=== PATIENT | male | born 1950 | race Caucasian/White ===

== ENCOUNTER 2019-02-11 07:50 | Inpatient (IN) | payer BC, MEDICARE, OTHER ==
[~2019-02-11 07:50] MED LIST: Acetaminophen 325 MG Tab PO SCH; Bisacodyl 5 MG Tab PO PRN; Cyclobenzaprine 10 MG Tab PO PRN; Famotidine 20 MG Tab PO SCH; Lidocaine 1%/Sod Bicarbonate in NS 8.4% 1 ML Syringe IDERM PRN; Magnesium Hydroxide 400 MG/5 ML Susp 30 ML Cup PO PRN; Morphine 2 MG/ML Syringe IVPUSH PRN; Naloxone 0.4 MG/ML SDV IVPUSH PRN; Pregabalin 25 MG Cap PO SCH; Prochlorperazine 10 MG/2 ML SDV IVPUSH PRN; Sennosides 8.6 MG Tab PO PRN; Sodium Chloride 0.9% 10 ML Syringe FLUSH PRN; oxyCODONE ER 10 MG TAB.ER PO SCH
[2019-02-11] MEDS ORDERED: Midazolam 1 MG/ML 2 ML SDV ONE (07:54)
[2019-02-11] MEDS ORDERED: ceFAZolin 1 GM Vial ONE ×2 (07:55→08:03)
[2019-02-11] MEDS ORDERED: fentaNYL 100 MCG/2 ML SDV ONE (07:55)
[2019-02-11] MEDS ORDERED: Propofol 200 MG/20 ML SDV ONE ×2 (07:59→10:11)
[2019-02-11] MEDS ORDERED: Bupivacaine 0.25% 10 ML SDV ONE (08:03)
[2019-02-11] MEDS ORDERED: Iodine/Sodium Iodide 2% Tincture 30 ML Bottle ONE (08:03)
[2019-02-11] MEDS ORDERED: Vancomycin 1 GM SDV ONE (08:03)
[2019-02-11] MEDS ORDERED: Ropivacaine 0.5% 5 MG/ML 30 ML SDV ONE (08:05)
[2019-02-11] MEDS: Lactated Ringers 1,000 ML IV SCH ×2 (08:30→11:23)
[2019-02-11] MEDS ORDERED: Scopolamine 1.5 MG Transdermal Patch TRDERM PRN (08:39)
--- NOTE | 2019-02-11 08:43 | PCM.PREANE ---
Preanesthetic Assessment - Procedure Proposed Procedure: Right TKA - Anesthesia/Transfusion/Family Hx Anesthesia History: Prior Anesthesia Reaction (nausea) Family History of Anesthesia Reaction: No Transfusion History: No Prior Transfusion(s) - Review of Systems General: No Symptoms Pulmonary: No Symptoms Cardiovascular: Dyspnea on Exertion Gastrointestinal: No Symptoms Neurological: Numbness ("at times right fingers") Other: Reports: Thyroid Problems (hypothyroid) - Physical Assessment NPO Status Date: 02/10/19 NPO Status Time: 22:30 Vital Signs: Last Vital Signs Temp 36.7 C 02/11/19 08:00 Pulse 90 02/11/19 08:00 Resp 16 02/11/19 08:00 BP 126/82 02/11/19 08:00 Pulse Ox 95 02/11/19 08:00 Height: 1.8 m Weight: 103.873 kg ASA Class: 2 Mental Status: Alert & Oriented x3 Dentition: Reports: Normal Dentition, [place](s) Thyro-Mental Finger Breadths: 3 Mouth Opening Finger Breadths: 3 ROM/Head Extension: Full Lungs: Clear to Auscultation, Normal Respiratory Effort Cardiovascular: Regular Rate, Regular Rhythm - Lab Values: Laboratory Last Values MRSA (PCR) Negative 02/01/19 10:41 - Imaging/EKG Impressions: EKG on chart SR rate92 see chart - Allergies Allergies/Adverse Reactions: Allergies Allergy/AdvReac Type Severity Reaction Status Date / Time No Known Allergies Allergy Verified 02/08/19 13:36 - Anesthesia Plan Pre-Op Medication Ordered: None - Acknowledgements Anesthesia Type Planned: Spinal Pt an Appropriate Candidate for the Planned Anesthesia: Yes Alternatives and Risks of Anesthesia Discussed w Pt/Guardian: Yes Pt/Guardian Understands and Agrees with Anesthesia Plan: Yes PreAnesthesia Questionnaire HEENT History: Reports: Cataract, Impaired Vision, Other (See Below) Other HEENT History: WEARS GLASSES Cardiovascular History: Reports: High Cholesterol, Hypertension Respiratory History: Reports: None Gastrointestinal History: Reports: GERD Genitourinary History: Reports: None [employer]ING History: Reports: None Musculoskeletal History: Reports: Osteoarthritis Other Musculoskeletal History: left wrist fracture with closed reduction, right arm fracture with plates, right clavicle fracture Neurological History: Reports: None, Other (See Below) ("age 8 or 9 had epilepsy had medication for a couple years then that was it") Psychiatric History: Reports: None Endocrine/Metabolic History: Reports: Hypothyroidism, Vitamin D Deficiency Hematologic History: Reports: None Immunologic History: Reports: None Oncologic (Cancer) History: Reports: None Dermatologic History: Reports: None - Past Surgical History Head Surgeries/Procedures: Reports: None HEENT Surgical History: Reports: Cataract Surgery Cardiovascular Surgical History: Reports: None Respiratory Surgical History: Reports: None GI Surgical History: Reports: Appendectomy Female Surgical History: Reports: None Male Surgical History: Reports: None Endocrine Surgical History: Reports: None Neurological Surgical History: Reports: None Musculoskeletal Surgical History: Reports: None Oncologic Surgical History: Reports: None Dermatological Surgical History: Reports: None - SUBSTANCE USE Smoking Status *Q: Former Smoker Tobacco Use Within Last Twelve Months: No Second Hand Smoke Exposure: No Days Per Week of Alcohol Use: 0 Number of Drinks Per Day: 0 Total Drinks Per Week: 0 Recreational Drug Use History: No - HOME MEDS Home Medications: Home Meds Cholecalciferol (Vitamin D3) [Vitamin D3] 5,000 unit PO DAILY 02/08/19 [History] Esomeprazole Magnesium [Nexium] 40 mg PO DAILY 02/08/19 [History] Levothyroxine Sodium [Synthroid] 112 mcg PO DAILY 02/08/19 [History] Lisinopril 20 mg PO DAILY 02/08/19 [History] amLODIPine Besylate [Norvasc] 2.5 mg PO DAILY 02/08/19 [History] atorvaSTATin Calcium [Atorvastatin Calcium] 80 mg PO DAILY 02/08/19 [History] - CURRENT (IN HOUSE) MEDS Current Meds: Current Medications Acetaminophen (Tylenol) 975 mg PO NOW [facility] Stop: 02/11/19 12:00 Last Admin: 02/11/19 08:18 Dose: 975 mg Bisacodyl (Dulcolax) 5 mg PO DAILY PRN PRN Reason: Constipation Morphine Sulfate 8 mg/Epinephrine HCl 0.3 mg/Cefuroxime Sodium 750 mg/Ketorolac Tromethamine 30 mg/Sodium Chloride 27.9 ml 0 mg .XX ONETIME ONE Stop: 02/11/19 09:46 Cyclobenzaprine HCl (Flexeril) 10 mg PO TID PRN PRN Reason: Spasms Docusate Sodium (Colace) 100 mg PO BID [facility] Famotidine (Pepcid) 20 mg PO Q12H [facility] Lactated Ringer's (Ringers, Lactated) 1,000 mls @ 125 mls/hr IV ASDIRECTED [facility] Stop: 02/11/19 23:00 Cefazolin Sodium/Dextrose 2 gm (/ Premix) 50 mls @ 100 mls/hr IV Q8H [facility] Stop: 02/11/19 22:44 Ketorolac Tromethamine (Toradol) 15 mg IVPUSH Q6H PRN PRN Reason: Pain Lidocaine/Sodium Bicarbonate (Buffered Lidocaine 1% In Ns 8.4%) 0.25 ml IDERM ONETIME PRN PRN Reason: Prior to IV Start Stop: 02/11/19 18:00 Magnesium Hydroxide (Milk Of Magnesia) 30 ml PO BID PRN PRN Reason: Constipation Morphine Sulfate (Morphine) 2 mg IVPUSH Q2H PRN PRN Reason: Breakthrough Pain Naloxone HCl (Narcan) 0.1 mg IVPUSH Q5M PRN PRN Reason: Oversedation Oxycodone HCl (Oxycontin) 10 mg PO ONETIME [facility] Stop: 02/11/19 12:00 Last Admin: 02/11/19 08:18 Dose: 10 mg Pregabalin (Lyrica) 50 mg PO ONETIME [facility] Stop: 02/11/19 12:00 Last Admin: 02/11/19 08:18 Dose: 50 mg Prochlorperazine Edisylate (Compazine) 5 mg IVPUSH Q8H PRN PRN Reason: Nausea/Vomiting Rivaroxaban (Xarelto) 10 mg PO DAILY [facility] Senna (Senna) 8.6 mg PO BID PRN PRN Reason: Constipation Sodium Chloride (Saline Flush) 10 ml FLUSH ASDIRECTED PRN PRN Reason: Keep Vein Open Stop: 02/11/19 18:00 Discontinued Medications Bupivacaine HCl (Sensorcaine-Mpf 0.25%) Confirm Administered Dose 30 ml .ROUTE .STK-MED ONE Stop: 02/11/19 08:04 Cefazolin Sodium (Ancef) Confirm Administered Dose 2 gm .ROUTE .STK-MED ONE Stop: 02/11/19 07:56 Cefazolin Sodium (Ancef) Confirm Administered Dose 2 gm .ROUTE .STK-MED ONE Stop: 02/11/19 08:04 Fentanyl (Sublimaze) Confirm Administered Dose 100 mcg .ROUTE .STK-MED ONE Stop: 02/11/19 07:56 Iodine (Iodine 2% Mild Tincture) Confirm Administered Dose 30 ml .ROUTE .STK- MED ONE Stop: 02/11/19 08:04 Midazolam HCl (Versed 1 Mg/Ml) Confirm Administered Dose 2 mg .ROUTE .STK-MED ONE Stop: 02/11/19 07:55 Propofol (Diprivan 20 Ml) Confirm Administered Dose 600 mg .ROUTE .STK-MED ONE Stop: 02/11/19 08:00 Ropivacaine (Naropin 0.5%) Confirm Administered Dose 30 ml .ROUTE .STK-MED ONE Stop: 02/11/19 08:06 Tranexamic Acid (Cyklokapron) Confirm Administered Dose 1,000 mg .ROUTE .STK- MED ONE Stop: 02/11/19 08:04 Vancomycin HCl (Vancomycin) Confirm Administered Dose 1 gm .ROUTE .STK-MED ONE Stop: 02/11/19 08:04
[2019-02-11] MEDS ORDERED: ePHEDrine/Normal Saline 25 MG/5 ML Syringe ONE (09:28)
[2019-02-11] MEDS ORDERED: Lactated Ringers 1,000 ML ONE ×2 (09:35→12:10)
[2019-02-11] MEDS ORDERED: fentaNYL 100 MCG/2 ML SDV IVPUSH PRN (09:38)
[2019-02-11] MEDS ORDERED: HYDROmorphone 0.5 MG/0.5 ML Syringe IVPUSH PRN (09:38)
[2019-02-11] MEDS ORDERED: Ondansetron 4 MG/2 ML SDV IVPUSH PRN ×2 (09:38→17:23)
[2019-02-11] MEDS ORDERED: Phenylephrine/Normal Saline 100 MCG/ML 10 ML Syringe ONE (09:55)
[2019-02-11] MEDS ORDERED: Ondansetron 4 MG/2 ML SDV ONE (10:30)
[2019-02-11] MEDS ORDERED: Ketorolac 30 MG/ML SDV ONE (10:30)
[2019-02-11] MEDS: Morphine 8 MG, EPINEPHrine 0.3 MG, Cefuroxime 750 MG, Ketorolac 30 MG, Sodium Chloride ... ONE ×10 (10:32→15:06)
--- NOTE | 2019-02-11 11:11 | PCM.POSTAN ---
POST ANESTHESIA ASSESSMENT - MENTAL STATUS Mental Status: Alert, Oriented - VITAL SIGNS Vital Signs: Last Vital Signs Temp 209.1 F H 02/11/19 11:03 Pulse 90 02/11/19 08:00 Resp 20 02/11/19 11:03 BP 82/57 L 02/11/19 11:03 Pulse Ox 95 02/11/19 11:03 86 20 98.4 95% 84/57 - RESPIRATORY Respiratory Status: Respiratory Rate WNL, Airway Patent, O2 Saturation Stable, Supplemental Oxygen - CARDIOVASCULAR CV Status: Pulse Rate WNL, Blood Pressure Stable - GASTROINTESTINAL GI Status: No Symptoms - PAIN Pain Score: 0 - POST OP HYDRATION Hydration Status: Adequate & Stable
--- NOTE | 2019-02-11 11:27 | PCM.SN ---
- Free Text/Narrative Note: Right selective femoral nerve block at the adductor canal for post-procedure pain control under US guidance requested by Dr. Norris. Date:02/11/19 Time Out:1115 Start:1117 End: 1119 Chart reviewed. Consent signed. Questions answered. Appropriate monitors applied. Time out performed. Right mid-shaft femur identified with ultrasound, scanning medially of femur, the femoral artery in the adductor canal visualized , and the femoral nerve located laterally to the artery. The skin was prepped lateral to the ultrasound probe with chlorahexadine times two. The 21ga 4 insulated block needle was inserted under direct ultrasound guidance into the adductor canal. 25mL of 0.5% ropivacaine with 1:200,000 epinephrine was injected circumferentially around the nerve with intermittent negative aspiration noted. Patient tolerated the procedure well. Sterile technique noted along with sterile gloves, mask, and sterile probe cover. See picture on progress note and vital signs on nurses notes. Block completed in PACU. Jose Martin Mendez CRNA
--- NOTE | 2019-02-11 12:26 | CR ---
Right knee: AP and crosstable lateral views the right knee were obtained. Comparison: No previous knee exam. Knee prosthesis is seen. Components are aligned. Underlying bony structures are intact. Soft tissue air is noted from the surgical procedure. Impression: 1. Satisfactory postoperative radiographic appearance. Recently placed right knee prosthesis. Diagnostic code #2 This report was dictated in [place] Standard Time
--- NOTE | 2019-02-11 13:00 | PCM.CONS ---
H&P History of Present Illness - General Date of Service: 02/11/19 Admit Problem/Dx: Admission Diagnosis/Problem Admission Diagnosis/Problem Osteoarthritis of knee Source of Information: Patient, Old Records, Provider, RN, RN Notes Reviewed History Limitations: Reports: No Limitations - History of Present Illness Initial Comments - Free Text/Narative: Mamadou Salazar is a 68 yo male patient of Dr. Norris who is post-operative day 0 of right TKA. Hospital medicine was consulted for post-operative medical care of the following listed medical conditions. At this time he is resting comfortably in bed. Pain is controlled. He denies any chest pain, shortness of breath, palpitations, nausea, or vomiting. He carries a history of: HTN, Hypothyroidism , HLD, GERD, Vitamin D deficiency, 4cm TAA. He is a former smoker. He is a full code. His primary care provider is Joy Morris PA-C. - Related Data Allergies/Adverse Reactions: Allergies Allergy/AdvReac Type Severity Reaction Status Date / Time No Known Allergies Allergy Verified 02/08/19 13:36 Home Medications: Home Meds Cholecalciferol (Vitamin D3) [Vitamin D3] 5,000 unit PO DAILY 02/08/19 [History] Esomeprazole Magnesium [Nexium] 40 mg PO DAILY 02/08/19 [History] Levothyroxine Sodium [Synthroid] 112 mcg PO DAILY 02/08/19 [History] Lisinopril 20 mg PO DAILY 02/08/19 [History] amLODIPine Besylate [Norvasc] 2.5 mg PO DAILY 02/08/19 [History] atorvaSTATin Calcium [Atorvastatin Calcium] 80 mg PO DAILY 02/08/19 [History] Past Medical History HEENT History: Reports: Cataract, Impaired Vision, Other (See Below) Other HEENT History: WEARS GLASSES Cardiovascular History: Reports: High Cholesterol, Hypertension Respiratory History: Reports: None Gastrointestinal History: Reports: GERD Genitourinary History: Reports: None [employer] History: Reports: None Musculoskeletal History: Reports: Osteoarthritis Other Musculoskeletal History: left wrist fracture with closed reduction, right arm fracture with plates, right clavicle fracture Neurological History: Reports: None, Other (See Below) ("age 8 or 9 had epilepsy had medication for a couple years then that was it") Psychiatric History: Reports: None Endocrine/Metabolic History: Reports: Hypothyroidism, Vitamin D Deficiency Hematologic History: Reports: None Immunologic History: Reports: None Oncologic (Cancer) History: Reports: None Dermatologic History: Reports: None - Past Surgical History Head Surgeries/Procedures: Reports: None HEENT Surgical History: Reports: Cataract Surgery Cardiovascular Surgical History: Reports: None Respiratory Surgical History: Reports: None GI Surgical History: Reports: Appendectomy Female Surgical History: Reports: None Male Surgical History: Reports: None Endocrine Surgical History: Reports: None Neurological Surgical History: Reports: None Musculoskeletal Surgical History: Reports: None Oncologic Surgical History: Reports: None Dermatological Surgical History: Reports: None Social & Family History - Tobacco Use Smoking Status *Q: Former Smoker Used Tobacco, but Quit: Yes Month/Year Tobacco Last Used: 1999 Second Hand Smoke Exposure: No - Caffeine Use Caffeine Use: Reports: Coffee - Alcohol Use Days Per Week of Alcohol Use: 0 Number of Drinks Per Day: 0 Total Drinks Per Week: 0 - Recreational Drug Use Recreational Drug Use: No Drug Use in Last 12 Months: No H&P Review of Systems - Review of Systems: Review Of Systems: See Below General: Reports: No Symptoms. Denies: Fever, Chills HEENT: Reports: No Symptoms. Denies: Headaches, Sore Throat Pulmonary: Reports: No Symptoms. Denies: Shortness of Breath, Wheezing, Pleuritic Chest Pain, Cough, Sputum Cardiovascular: Reports: No Symptoms. Denies: Chest Pain, Palpitations, Dyspnea on Exertion Gastrointestinal: Reports: No Symptoms. Denies: Abdominal Pain, Constipation, Diarrhea, Nausea, Vomiting Genitourinary: Reports: No Symptoms. Denies: Pain Musculoskeletal: Reports: Leg Pain (right ) Skin: Reports: No Symptoms. Denies: Cyanosis Psychiatric: Reports: No Symptoms. Denies: Confusion Neurological: Reports: Difficulty Walking, Gait Disturbance. Denies: Pre- Existing Deficit Hematologic/Lymphatic: Reports: No Symptoms Immunologic: Reports: No Symptoms Exam - Exam Exam: See Below - Vital Signs Vital Signs: Last Vital Signs Temp 97.9 F 02/11/19 12:46 Pulse 64 02/11/19 12:46 Resp 16 02/11/19 12:46 BP 110/72 02/11/19 12:46 Pulse Ox 99 02/11/19 12:46 Weight: 229 lb - Exam Quality Assessment: Supplemental Oxygen, DVT Prophylaxis General: Alert, Oriented, Cooperative. No: Mild Distress HEENT: Conjunctiva Clear, EACs Clear, EOMI, Hearing Intact, Mucosa Moist & [place] , Nares Patent, Posterior Pharynx Clear, PERRLA Neck: Supple, Trachea Midline Lungs: Clear to Auscultation, Normal Respiratory Effort Cardiovascular: Regular Rate, Regular Rhythm GI/Abdominal Exam: Normal Bowel Sounds, Soft, Non-Tender, No Distention, No Abnormal Bruit (Male) Exam: Deferred Rectal (Males) Exam: Deferred Back Exam: Normal Inspection, Full Range of Motion Extremities: No Pedal Edema, Normal Capillary Refill, Leg Pain, Limited Range of Motion, Other (Bandage in place on right leg. Bandage is dry and intact. Cooling pack in place.) Peripheral Pulses: 2+: Radial (L), Radial (R), Dorsalis Pedis (L), Dorsalis Pedis (R) Skin: Warm, Dry, Intact Neurological: Cranial Nerves Intact (Grossly ) Neuro Extensive - Mental Status: Alert, Oriented x3, Normal Mood/Affect Sepsis Event Note - Evaluation Sepsis Screening Result: No Definite Risk - Focused Exam Vital Signs: Vital Signs Temp Pulse Resp BP Pulse Ox Pulse Ox 02/11/19 12:46 97.9 F 64 16 110/72 99 02/11/19 12:44 99 02/11/19 11:50 16 106/62 92 L 02/11/19 11:45 98.1 F 20 97/59 L 92 L 02/11/19 11:30 20 89/67 L 92 L 02/11/19 11:20 13 93/63 100 02/11/19 11:10 18 95/53 L 94 L 02/11/19 11:03 209.1 F H 20 82/57 L 95 95 02/11/19 08:00 98.0 F 90 16 126/82 95 Date Exam was Performed: 02/11/19 Time Exam was Performed: 14:29 Consult PN Assessment/Plan POD#: 0 (1) S/P total knee arthroplasty SNOMED Code(s): 7503183499560, 258144283, 1388412007593 Code(s): Z96.659 - PRESENCE OF UNSPECIFIED ARTIFICIAL KNEE JOINT Priority: High Current Visit: Yes Qualifiers: Laterality: right Qualified Code(s): Z96.651 - Presence of right artificial knee joint (2) Osteoarthritis SNOMED Code(s): 171149624 Code(s): M19.90 - UNSPECIFIED OSTEOARTHRITIS, UNSPECIFIED SITE Priority: High Current Visit: Yes Qualifiers: Osteoarthritis location: knee Osteoarthritis type: primary Laterality: right Qualified Code(s): M17.11 - Unilateral primary osteoarthritis, right knee (3) HTN (hypertension) SNOMED Code(s): 48367930 Code(s): I10 - ESSENTIAL (PRIMARY) HYPERTENSION Priority: Low Current Visit: No Qualifiers: Hypertension type: unspecified Qualified Code(s): I10 - Essential (primary ) hypertension (4) Hypothyroid SNOMED Code(s): 34500314 Code(s): E03.9 - HYPOTHYROIDISM, UNSPECIFIED Priority: Low Current Visit : No Qualifiers: Hypothyroidism type: unspecified Qualified Code(s): E03.9 - Hypothyroidism , unspecified (5) HLD (hyperlipidemia) SNOMED Code(s): 71583358 Code(s): E78.5 - HYPERLIPIDEMIA, UNSPECIFIED Priority: Low Current Visit : No Qualifiers: Hyperlipidemia type: unspecified Qualified Code(s): E78.5 - Hyperlipidemia , unspecified (6) GERD (gastroesophageal reflux disease) SNOMED Code(s): 487120709 Code(s): K21.9 - GASTRO-ESOPHAGEAL REFLUX DISEASE WITHOUT ESOPHAGITIS Priority: Low Current Visit: No Qualifiers: Esophagitis presence: esophagitis presence not specified Qualified Code(s) : K21.9 - Gastro-esophageal reflux disease without esophagitis (7) Vitamin D deficiency SNOMED Code(s): 45126537 Code(s): E55.9 - VITAMIN D DEFICIENCY, UNSPECIFIED Priority: Low Current Visit: No (8) Thoracic aortic aneurysm (TAA) SNOMED Code(s): 298306761 Code(s): I71.2 - THORACIC AORTIC ANEURYSM, WITHOUT RUPTURE Priority: Medium Current Visit: No Qualifiers: Presence of rupture: without rupture Qualified Code(s): I71.2 - Thoracic aortic aneurysm, without rupture Problem List Initiated/Reviewed/Updated: Yes Plan: I/P: Acute: S/P right total knee arthroplasty - post-operative day 0 -DVT prophylaxis and pain management per primary care team -PT/OT -IS/RT -Monitor oxygen saturation -Titrate oxygen as needed -Home medications reviewed -Vital signs stable -Monitor labs -Pre-operative Hgb was 14.7 -Pre-operative GFR was 79 -Pre-operative 12-lead EKG showed Sinus arrhythmia with LAFB, Non-specific ST segment abnormalities and Long QT Osteoarthritis of right knee -Pain management per primary care team Chronic: HTN Hypothyroidism HLD GERD Vitamin D deficiency 4cm TAA Plan: Telemetry CM for discharge planning GI prophylaxis Home medications as indicated Other orders as listed above Routine AM labs He is a full code. His PCP is Joy Morris PA-C Thank you for allowing us to participate in the care of this patient!! Requesting Provider: Dr. Norris Date Consult Requested: 02/11/19 Patient History Reviewed: Yes Admission H&P Reviewed: Yes
[2019-02-11] MEDS ORDERED: Ketorolac 15 MG/ML SDV IVPUSH PRN (15:00)
[2019-02-11] MEDS ORDERED: Acetaminophen/HYDROcodone 325-5 MG Tab PO PRN (15:03)
[2019-02-11] MEDS: ceFAZolin 2 GM in Premix Bag 1 BAG IV SCH ×2 (15:23→23:30)
[2019-02-11] MEDS ORDERED: Acetaminophen/oxyCODONE 325-5 MG Tab PO PRN (15:58)
[2019-02-11] MEDS ORDERED: Ondansetron 4 MG in Sodium Chloride 0.9% 50 ML IV PRN (17:02)
[2019-02-11] MEDS: Docusate Sodium 100 MG Cap PO SCH (20:06)
[2019-02-11] MEDS ORDERED: amLODIPine 2.5 MG Tab PO SCH (21:15)
[2019-02-11] MEDS: Acetaminophen/oxyCODONE 325-5 MG Tab PO PRN (23:29)
[2019-02-12] MEDS: Acetaminophen/oxyCODONE 325-5 MG Tab PO PRN ×2 (05:31→12:57)
[2019-02-12] MEDS ORDERED: Levothyroxine 112 MCG Tab PO SCH (06:00)
[2019-02-12] MEDS ORDERED: Sodium Chloride 0.9% 500 ML IV ONE (07:14)
--- NOTE | 2019-02-12 07:17 | PCM.CONSN ---
- General Info Date of Service: 02/12/19 Admission Dx/Problem (Free Text): Admission Diagnosis/Problem Admission Diagnosis/Problem Osteoarthritis of knee Functional Status: Reports: Pain Controlled, Tolerating Diet, Ambulating, Urinating, Incentive Spirometry. Denies: New Symptoms - Review of Systems General: Reports: No Symptoms. Denies: Fever, Chills HEENT: Reports: No Symptoms. Denies: Headaches, Sore Throat Pulmonary: Reports: No Symptoms. Denies: Shortness of Breath, Pleuritic Chest Pain, Cough, Sputum, Wheezing Cardiovascular: Reports: No Symptoms. Denies: Chest Pain, Palpitations, Dyspnea on Exertion Gastrointestinal: Reports: No Symptoms. Denies: Abdominal Pain, Constipation, Diarrhea, Nausea, Vomiting Genitourinary: Reports: No Symptoms. Denies: Pain Musculoskeletal: Reports: Leg Pain Skin: Reports: No Symptoms. Denies: Cyanosis Neurological: Reports: Difficulty Walking, Gait Disturbance. Denies: Confusion , Pre-Existing Deficit Psychiatric: Reports: No Symptoms - Patient Data Vitals - Most Recent: Last Vital Signs Temp 99.9 F 02/12/19 03:59 Pulse 90 02/12/19 03:59 Resp 16 02/12/19 03:59 BP 125/66 02/12/19 03:59 Pulse Ox 92 L 02/12/19 04:00 Weight - Most Recent: 238 lb 9.6 oz I&O - Last 24 Hours: Intake & Output 02/11/19 02/12/19 02/12/19 22:59 06:59 14:59 Intake Total 240 750 Balance 240 750 Lab Results Last 24 Hours: Laboratory Results - last 24 hr 02/12/19 02/12/19 Range/Units 04:33 04:33 WBC 6.88 (4.23-9.07) K/mm3 RBC 4.11 L (4.63-6.08) M/mm3 Hgb 11.7 L (13.7-17.5) gm/dl Hct 36.5 L (40.1-51.0) % MCV 88.8 (79.0-92.2) fl MCH 28.5 (25.7-32.2) pg MCHC 32.1 L (32.2-35.5) g/dl RDW Std Deviation 46.8 H (35.1-43.9) fL Plt Count 189 (163-337) K/mm3 MPV 9.7 (9.4-12.3) fl Sodium 137 (136-145) mEq/L Potassium 4.2 (3.5-5.1) mEq/L Chloride 103 (98-107) mEq/L Carbon Dioxide 26 (21-32) mEq/L Anion Gap 12.2 (5-15) BUN 21 H (7-18) mg/dL Creatinine 1.3 (0.7-1.3) mg/dL Est Cr Clr Drug Dosing 58.73 mL/min Estimated GFR (MDRD) 55 (>60) mL/min BUN/Creatinine Ratio 16.2 (14-18) Glucose 120 H (80-115) mg/dL Calcium 8.4 L (8.5-10.1) mg/dL Total Bilirubin 0.3 (0.2-1.0) mg/dL AST 18 (15-37) U/L ALT 6 L (16-63) U/L Alkaline Phosphatase 82 (46-116) U/L Total Protein 6.1 L (6.4-8.2) g/dl Albumin 2.8 L (3.4-5.0) g/dl Globulin 3.3 gm/dL Albumin/Globulin Ratio 0.9 L (1-2) Med Orders - Current: Current Medications Amlodipine Besylate (Norvasc) 2.5 mg PO BEDTIME [facility] Last Admin: 02/11/19 21:30 Dose: 2.5 mg Bisacodyl (Dulcolax) 5 mg PO DAILY PRN PRN Reason: Constipation Cholecalciferol (Vitamin D3) 5,000 unit PO DAILY [facility] Cyclobenzaprine HCl (Flexeril) 10 mg PO TID PRN PRN Reason: Spasms Docusate Sodium (Colace) 100 mg PO BID [facility] Last Admin: 02/11/19 20:06 Dose: 100 mg Cefazolin Sodium/Dextrose 2 gm (/ Premix) 50 mls @ 100 mls/hr IV Q8H [facility] Stop: 02/12/19 08:29 Last Admin: 02/11/19 23:30 Dose: 100 mls/hr Ketorolac Tromethamine (Toradol) 15 mg IVPUSH Q6H PRN PRN Reason: Pain Levothyroxine Sodium (Levothyroxine) 112 mcg PO ACBREAKFAST [facility] Last Admin: 02/12/19 05:30 Dose: 112 mcg Magnesium Hydroxide (Milk Of Magnesia) 30 ml PO BID PRN PRN Reason: Constipation Miscellaneous Information (Remove Patch) 1.5 ea TRDERM Q72H [facility] Morphine Sulfate (Morphine) 2 mg IVPUSH Q2H PRN PRN Reason: Breakthrough Pain Naloxone HCl (Narcan) 0.1 mg IVPUSH Q5M PRN PRN Reason: Oversedation Ondansetron HCl (Zofran) 4 mg IVPUSH Q6H PRN PRN Reason: Nausea Oxycodone/Acetaminophen (Percocet 325-5 Mg) 1 - 2 tab PO Q4H PRN PRN Reason: Pain Last Admin: 02/12/19 05:31 Dose: 2 tab Pantoprazole Sodium (Protonix) 40 mg PO DAILY [facility] Prochlorperazine Edisylate (Compazine) 5 mg IVPUSH Q8H PRN PRN Reason: Nausea/Vomiting Rivaroxaban (Xarelto) 10 mg PO DAILY [facility] Rosuvastatin Calcium (Crestor) 20 mg PO DAILY [facility] Scopolamine (Transderm-Scop) 1.5 mg TRDERM Q72H PRN PRN Reason: Nausea Last Admin: 02/11/19 08:50 Dose: 1.5 mg Senna (Senna) 8.6 mg PO BID PRN PRN Reason: Constipation Discontinued Medications Acetaminophen (Tylenol) 975 mg PO NOW [facility] Stop: 02/11/19 12:00 Last Admin: 02/11/19 08:18 Dose: 975 mg Hydrocodone Bitart/Acetaminophen ([place] 325-5 Mg) 1 - 2 tab PO Q4H PRN PRN Reason: Pain (moderate 4-6) Last Admin: 02/11/19 15:21 Dose: 2 tab Amlodipine Besylate (Norvasc) 2.5 mg PO DAILY [facility] Bupivacaine HCl (Sensorcaine-Mpf 0.25%) Confirm Administered Dose 30 ml .ROUTE .STK-MED ONE Stop: 02/11/19 08:04 Last Admin: 02/11/19 10:32 Dose: 30 ml Cefazolin Sodium (Ancef) Confirm Administered Dose 2 gm .ROUTE .STK-MED ONE Stop: 02/11/19 07:56 Last Admin: 02/11/19 10:29 Dose: 2 gm Cefazolin Sodium (Ancef) Confirm Administered Dose 2 gm .ROUTE .STK-MED ONE Stop: 02/11/19 08:04 Morphine Sulfate 8 mg/Epinephrine HCl 0.3 mg/Cefuroxime Sodium 750 mg/Ketorolac Tromethamine 30 mg/Sodium Chloride 27.9 ml 0 mg .XX ONETIME ONE Stop: 02/11/19 09:46 Last Admin: 02/11/19 15:06 Dose: Not Given Ephedrine Sulfate (Ephedrine In Ns) Confirm Administered Dose 25 mg .ROUTE .STK- MED ONE Stop: 02/11/19 09:29 Famotidine (Pepcid) 20 mg PO Q12H [facility] Last Admin: 02/11/19 15:09 Dose: Not Given Fentanyl (Sublimaze) Confirm Administered Dose 100 mcg .ROUTE .STK-MED ONE Stop: 02/11/19 07:56 Fentanyl (Sublimaze) 50 mcg IVPUSH Q5M PRN PRN Reason: Pain Stop: 02/11/19 18:00 Hydromorphone HCl (Dilaudid) 0.5 mg IVPUSH Q10M PRN PRN Reason: Pain (severe 7-10) Stop: 02/11/19 18:00 Lactated Ringer's (Ringers, Lactated) 1,000 mls @ 125 mls/hr IV ASDIRECTED [facility] Stop: 02/11/19 23:00 Last Admin: 02/11/19 11:23 Dose: 125 mls/hr Lactated Ringer's (Ringers, Lactated) Confirm Administered Dose 1,000 mls @ as directed .ROUTE .STK-MED ONE Stop: 02/11/19 09:36 Lactated Ringer's (Ringers, Lactated) Confirm Administered Dose 1,000 mls @ as directed .ROUTE .STK-MED ONE Stop: 02/11/19 12:11 Iodine (Iodine 2% Mild Tincture) Confirm Administered Dose 30 ml .ROUTE .STK- MED ONE Stop: 02/11/19 08:04 Last Admin: 02/11/19 10:28 Dose: 18 ml Ketorolac Tromethamine (Toradol) Confirm Administered Dose 30 mg .ROUTE .STK- MED ONE Stop: 02/11/19 10:31 Lidocaine/Sodium Bicarbonate (Buffered Lidocaine 1% In Ns 8.4%) 0.25 ml IDERM ONETIME PRN PRN Reason: Prior to IV Start Stop: 02/11/19 18:00 Midazolam HCl (Versed 1 Mg/Ml) Confirm Administered Dose 2 mg .ROUTE .STK-MED ONE Stop: 02/11/19 07:55 Ondansetron HCl (Zofran) 4 mg IVPUSH ONETIME PRN PRN Reason: Nausea/Vomiting Stop: 02/11/19 18:00 Ondansetron HCl (Zofran) Confirm Administered Dose 4 mg .ROUTE .STK-MED ONE Stop: 02/11/19 10:31 Oxycodone HCl (Oxycontin) 10 mg PO ONETIME [facility] Stop: 02/11/19 12:00 Last Admin: 02/11/19 08:18 Dose: 10 mg Oxycodone/Acetaminophen (Percocet 325-5 Mg) 1 - 2 tab PO Q4H PRN PRN Reason: Pain Last Admin: 02/11/19 20:06 Dose: 2 tab Phenylephrine HCl (Phenylephrine In Ns 100 Mcg/Ml) Confirm Administered Dose 1 mg .ROUTE .STK-MED ONE Stop: 02/11/19 09:56 Pregabalin (Lyrica) 50 mg PO ONETIME [facility] Stop: 02/11/19 12:00 Last Admin: 02/11/19 08:18 Dose: 50 mg Propofol (Diprivan 20 Ml) Confirm Administered Dose 600 mg .ROUTE .STK-MED ONE Stop: 02/11/19 08:00 Propofol (Diprivan 20 Ml) Confirm Administered Dose 200 mg .ROUTE .STK-MED ONE Stop: 02/11/19 10:12 Ropivacaine (Naropin 0.5%) Confirm Administered Dose 30 ml .ROUTE .STK-MED ONE Stop: 02/11/19 08:06 Sodium Chloride (Saline Flush) 10 ml FLUSH ASDIRECTED PRN PRN Reason: Keep Vein Open Stop: 02/11/19 18:00 Tranexamic Acid (Cyklokapron) Confirm Administered Dose 1,000 mg .ROUTE .STK- MED ONE Stop: 02/11/19 08:04 Last Admin: 02/11/19 10:40 Dose: 1,000 mg Vancomycin HCl (Vancomycin) Confirm Administered Dose 1 gm .ROUTE .STK-MED ONE Stop: 02/11/19 08:04 Last Admin: 02/11/19 10:37 Dose: 1 gm - Exam Quality Assessment: DVT Prophylaxis. No: Supplemental Oxygen General: Alert, Oriented, Cooperative, No Acute Distress HEENT: Pupils Equal, Pupils Reactive, EOMI, Mucous Membr. Moist/[place] Neck: Supple, Trachea Midline Lungs: Clear to Auscultation, Normal Respiratory Effort Cardiovascular: Regular Rate, Regular Rhythm GI/Abdominal Exam: Normal Bowel Sounds, Soft, Non-Tender, No Distention, No Abnormal Bruit (Male) Exam: Deferred Back Exam: Normal Inspection, Full Range of Motion Extremities: Normal Capillary Refill, Leg Pain, Limited Range of Motion, Other ( Bandage in place on right leg. Cooling pack in place.) Peripheral Pulses: 2+: Radial (L), Radial (R), Dorsalis Pedis (L), Dorsalis Pedis (R) Skin: Warm, Dry, Intact Wound/Incisions: Dressing Dry and Intact Neurological: No New Focal Deficit Psy/Mental Status: Alert, Normal Affect, Normal Mood Sepsis Event Note - Evaluation Sepsis Screening Result: No Definite Risk - Focused Exam Vital Signs: Vital Signs Temp Pulse Resp BP Pulse Ox 02/12/19 04:00 92 L 02/12/19 03:59 99.9 F 90 16 125/66 02/12/19 00:07 82 93 L 02/11/19 23:32 85 94 L 02/11/19 23:29 99.0 F 88 16 101/47 L 85 L 02/11/19 21:30 133/73 02/11/19 20:04 97.5 F 83 16 93 L 02/11/19 20:03 89 91 L 02/11/19 19:12 80 133/73 91 L Date Exam was Performed: 02/12/19 Time Exam was Performed: 11:23 Consult PN Assessment/Plan POD#: 1 (1) S/P total knee arthroplasty SNOMED Code(s): 8642473858740, 448339373, 6678279020476 Code(s): Z96.659 - PRESENCE OF UNSPECIFIED ARTIFICIAL KNEE JOINT Priority: High Current Visit: Yes Qualifiers: Laterality: right Qualified Code(s): Z96.651 - Presence of right artificial knee joint (2) Osteoarthritis SNOMED Code(s): 131660280 Code(s): M19.90 - UNSPECIFIED OSTEOARTHRITIS, UNSPECIFIED SITE Priority: High Current Visit: Yes Qualifiers: Osteoarthritis location: knee Osteoarthritis type: primary Laterality: right Qualified Code(s): M17.11 - Unilateral primary osteoarthritis, right knee (3) HTN (hypertension) SNOMED Code(s): 92699308 Code(s): I10 - ESSENTIAL (PRIMARY) HYPERTENSION Priority: Low Current Visit: No Qualifiers: Hypertension type: unspecified Qualified Code(s): I10 - Essential (primary ) hypertension (4) Hypothyroid SNOMED Code(s): 11318433 Code(s): E03.9 - HYPOTHYROIDISM, UNSPECIFIED Priority: Low Current Visit : No Qualifiers: Hypothyroidism type: unspecified Qualified Code(s): E03.9 - Hypothyroidism , unspecified (5) HLD (hyperlipidemia) SNOMED Code(s): 96955667 Code(s): E78.5 - HYPERLIPIDEMIA, UNSPECIFIED Priority: Low Current Visit : No Qualifiers: Hyperlipidemia type: unspecified Qualified Code(s): E78.5 - Hyperlipidemia , unspecified (6) GERD (gastroesophageal reflux disease) SNOMED Code(s): 513098914 Code(s): K21.9 - GASTRO-ESOPHAGEAL REFLUX DISEASE WITHOUT ESOPHAGITIS Priority: Low Current Visit: No Qualifiers: Esophagitis presence: esophagitis presence not specified Qualified Code(s) : K21.9 - Gastro-esophageal reflux disease without esophagitis (7) Vitamin D deficiency SNOMED Code(s): 89408430 Code(s): E55.9 - VITAMIN D DEFICIENCY, UNSPECIFIED Priority: Low Current Visit: No (8) Thoracic aortic aneurysm (TAA) SNOMED Code(s): 525962595 Code(s): I71.2 - THORACIC AORTIC ANEURYSM, WITHOUT RUPTURE Priority: Medium Current Visit: No Qualifiers: Presence of rupture: without rupture Qualified Code(s): I71.2 - Thoracic aortic aneurysm, without rupture Problem List Initiated/Reviewed/Updated: Yes My Orders Last 24 Hours: My Active Orders 02/11/19 21:15 amLODIPine [Norvasc] 2.5 mg PO BEDTIME 02/12/19 06:00 Levothyroxine 112 mcg PO ACBREAKFAST 02/12/19 09:00 Cholecalciferol (Vitamin D3) [Vitamin D3] 5,000 unit PO DAILY Pantoprazole [ProTONIX] 40 mg PO DAILY Rosuvastatin [Crestor] 20 mg PO DAILY Plan: I/P: Acute: S/P right total knee arthroplasty - post-operative day 1 -DVT prophylaxis and pain management per primary care team -PT/OT -IS/RT -Monitor oxygen saturation -Titrate oxygen as needed -Home medications reviewed -Vital signs stable -Monitor labs -Pre-operative Hgb was 14.7; Now 11.7 -Pre-operative GFR was 79; Now 55 -Pre-operative 12-lead EKG showed Sinus arrhythmia with LAFB, Non-specific ST segment abnormalities and Long QT Osteoarthritis of right knee -Pain management per primary care team Post operative renal injury -Pre-operative GFR 79; Now 55 -Pre-operative creatinine 1.0; Now 1.3 -Pre-operative BUN was 18; Now 21 -IV fluids as ordered -PCP follow-up with repeat BMP Chronic: HTN Hypothyroidism HLD GERD Vitamin D deficiency 4cm TAA Plan: Telemetry CM for discharge planning GI prophylaxis Home medications as indicated Other orders as listed above Routine AM labs He is a full code. His PCP is Joy Morris PA-C From a hospitalist standpoint Mamadou is doing quite well. He has been up ambulating and working with therapies. He is off of oxygen and has urinated. His labs and vital signs remain grossly stable. His GFR did drop 24 points today. Creatinine and BUN increased as above. Because of this he was given a 500mL fluid bolus and then IV infusion at 100mL per hour prior to discharge. He was encouraged to stay hydrated orally after discharge and avoid coffee, pop, ETOH, etc. Recommend PCP follow-up and re-check BMP within 3-5 days of discharge to ensure improvement. He reports no difficulty with urination. Otherwise, he has been utilizing his IS and pain is controlled. He is cleared for discharge pending primary team and PT/OT agreement. Of note: RT reports patient was noted to snore and desaturate a bit overnight. Berny's also reports frequent snoring. PCP should consider and screen patient for ANDREA. Thank you for allowing us to participate in the care of this patient!!
--- NOTE | 2019-02-12 08:01 | PCM48HPAN ---
Post Anesthesia Note - EVALUATION WITHIN 48HRS OF ANESTHETIC Vital Signs in Normal Range: Yes Patient Participated in Evaluation: Yes Respiratory Function Stable: Yes Airway Patent: Yes Cardiovascular Function Stable: Yes Hydration Status Stable: Yes Pain Control Satisfactory: Yes Nausea and Vomiting Control Satisfactory: Yes Mental Status Recovered: Yes Vital Signs: Last Vital Signs Temp 99.9 F 02/12/19 03:59 Pulse 90 02/12/19 03:59 Resp 16 02/12/19 03:59 BP 125/66 02/12/19 03:59 Pulse Ox 92 L 02/12/19 07:18 - COMMENTS/OBSERVATIONS Free Text/Narrative:: denies nausea yesterday. Has a little today. Pain controlled
[2019-02-12] MEDS: ceFAZolin 2 GM in Premix Bag 1 BAG IV SCH (08:21)
[2019-02-12] MEDS: Docusate Sodium 100 MG Cap PO SCH (08:32)
[2019-02-12] MEDS ORDERED: Pantoprazole 40 MG Tab.CR PO SCH (09:00)
[2019-02-12] MEDS ORDERED: Rivaroxaban 10 MG Tab PO SCH (09:00)
[2019-02-12] MEDS ORDERED: Cholecalciferol (Vitamin D3) 5,000 UNIT Tab PO SCH (09:00)
[2019-02-12] MEDS ORDERED: Rosuvastatin 10 MG Tab PO SCH (09:00)
[2019-02-12] MEDS ORDERED: amLODIPine 2.5 MG Tab PO SCH (09:00)
--- NOTE | 2019-02-14 13:23 | PCM.SURGPN ---
- General Info Date of Service: 02/12/19 POD#: 1 Functional Status: Reports: Pain Controlled, Tolerating Diet, Ambulating, Urinating, Incentive Spirometry, Other (The pt states he is prepared for discharge to home.) - Patient Data Vitals - Most Recent: Last Vital Signs Temp 99.1 F 02/12/19 11:37 Pulse 96 02/12/19 11:37 Resp 20 02/12/19 11:37 BP 127/87 02/12/19 11:37 Pulse Ox 94 L 02/12/19 11:37 Weight - Most Recent: 238 lb 9.6 oz Med Orders - Current: Current Medications Discontinued Medications Acetaminophen (Tylenol) 975 mg PO NOW [facility] Stop: 02/11/19 12:00 Last Admin: 02/11/19 08:18 Dose: 975 mg Hydrocodone Bitart/Acetaminophen ([place] 325-5 Mg) 1 - 2 tab PO Q4H PRN PRN Reason: Pain (moderate 4-6) Last Admin: 02/11/19 15:21 Dose: 2 tab Amlodipine Besylate (Norvasc) 2.5 mg PO DAILY [facility] Amlodipine Besylate (Norvasc) 2.5 mg PO BEDTIME [facility] Last Admin: 02/11/19 21:30 Dose: 2.5 mg Bisacodyl (Dulcolax) 5 mg PO DAILY PRN PRN Reason: Constipation Bupivacaine HCl (Sensorcaine-Mpf 0.25%) Confirm Administered Dose 30 ml .ROUTE .STK-MED ONE Stop: 02/11/19 08:04 Last Admin: 02/11/19 10:32 Dose: 30 ml Cefazolin Sodium (Ancef) Confirm Administered Dose 2 gm .ROUTE .STK-MED ONE Stop: 02/11/19 07:56 Last Admin: 02/11/19 10:29 Dose: 2 gm Cefazolin Sodium (Ancef) Confirm Administered Dose 2 gm .ROUTE .STK-MED ONE Stop: 02/11/19 08:04 Cholecalciferol (Vitamin D3) 5,000 unit PO DAILY [facility] Last Admin: 02/12/19 08:34 Dose: 5,000 unit Morphine Sulfate 8 mg/Epinephrine HCl 0.3 mg/Cefuroxime Sodium 750 mg/Ketorolac Tromethamine 30 mg/Sodium Chloride 27.9 ml 0 mg .XX ONETIME ONE Stop: 02/11/19 09:46 Last Admin: 02/11/19 15:06 Dose: Not Given Cyclobenzaprine HCl (Flexeril) 10 mg PO TID PRN PRN Reason: Spasms Docusate Sodium (Colace) 100 mg PO BID [facility] Last Admin: 02/12/19 08:32 Dose: 100 mg Ephedrine Sulfate (Ephedrine In Ns) Confirm Administered Dose 25 mg .ROUTE .STK- MED ONE Stop: 02/11/19 09:29 Famotidine (Pepcid) 20 mg PO Q12H [facility] Last Admin: 02/11/19 15:09 Dose: Not Given Fentanyl (Sublimaze) Confirm Administered Dose 100 mcg .ROUTE .STK-MED ONE Stop: 02/11/19 07:56 Fentanyl (Sublimaze) 50 mcg IVPUSH Q5M PRN PRN Reason: Pain Stop: 02/11/19 18:00 Hydromorphone HCl (Dilaudid) 0.5 mg IVPUSH Q10M PRN PRN Reason: Pain (severe 7-10) Stop: 02/11/19 18:00 Lactated Ringer's (Ringers, Lactated) 1,000 mls @ 125 mls/hr IV ASDIRECTED [facility] Stop: 02/11/19 23:00 Last Admin: 02/11/19 11:23 Dose: 125 mls/hr Cefazolin Sodium/Dextrose 2 gm (/ Premix) 50 mls @ 100 mls/hr IV Q8H [facility] Stop: 02/12/19 08:29 Last Admin: 02/12/19 08:21 Dose: 100 mls/hr Lactated Ringer's (Ringers, Lactated) Confirm Administered Dose 1,000 mls @ as directed .ROUTE .STK-MED ONE Stop: 02/11/19 09:36 Lactated Ringer's (Ringers, Lactated) Confirm Administered Dose 1,000 mls @ as directed .ROUTE .STK-MED ONE Stop: 02/11/19 12:11 Sodium Chloride (Normal Saline) 500 mls @ 999 mls/hr IV .BOLUS ONE Stop: 02/12/19 07:44 Last Admin: 02/12/19 08:15 Dose: 999 mls/hr Iodine (Iodine 2% Mild Tincture) Confirm Administered Dose 30 ml .ROUTE .STK- MED ONE Stop: 02/11/19 08:04 Last Admin: 02/11/19 10:28 Dose: 18 ml Ketorolac Tromethamine (Toradol) 15 mg IVPUSH Q6H PRN PRN Reason: Pain Ketorolac Tromethamine (Toradol) Confirm Administered Dose 30 mg .ROUTE .STK- MED ONE Stop: 02/11/19 10:31 Levothyroxine Sodium (Levothyroxine) 112 mcg PO ACBREAKFAST [facility] Last Admin: 02/12/19 05:30 Dose: 112 mcg Lidocaine/Sodium Bicarbonate (Buffered Lidocaine 1% In Ns 8.4%) 0.25 ml IDERM ONETIME PRN PRN Reason: Prior to IV Start Stop: 02/11/19 18:00 Magnesium Hydroxide (Milk Of Magnesia) 30 ml PO BID PRN PRN Reason: Constipation Midazolam HCl (Versed 1 Mg/Ml) Confirm Administered Dose 2 mg .ROUTE .STK-MED ONE Stop: 02/11/19 07:55 Miscellaneous Information (Remove Patch) 1.5 ea TRDERM Q72H [facility] Morphine Sulfate (Morphine) 2 mg IVPUSH Q2H PRN PRN Reason: Breakthrough Pain Naloxone HCl (Narcan) 0.1 mg IVPUSH Q5M PRN PRN Reason: Oversedation Ondansetron HCl (Zofran) 4 mg IVPUSH ONETIME PRN PRN Reason: Nausea/Vomiting Stop: 02/11/19 18:00 Ondansetron HCl (Zofran) Confirm Administered Dose 4 mg .ROUTE .STK-MED ONE Stop: 02/11/19 10:31 Ondansetron HCl (Zofran) 4 mg IVPUSH Q6H PRN PRN Reason: Nausea Oxycodone HCl (Oxycontin) 10 mg PO ONETIME [facility] Stop: 02/11/19 12:00 Last Admin: 02/11/19 08:18 Dose: 10 mg Oxycodone/Acetaminophen (Percocet 325-5 Mg) 1 - 2 tab PO Q4H PRN PRN Reason: Pain Last Admin: 02/11/19 20:06 Dose: 2 tab Oxycodone/Acetaminophen (Percocet 325-5 Mg) 1 - 2 tab PO Q4H PRN PRN Reason: Pain Last Admin: 02/12/19 12:57 Dose: 2 tab Pantoprazole Sodium (Protonix) 40 mg PO DAILY [facility] Last Admin: 02/12/19 08:34 Dose: 40 mg Phenylephrine HCl (Phenylephrine In Ns 100 Mcg/Ml) Confirm Administered Dose 1 mg .ROUTE .STK-MED ONE Stop: 02/11/19 09:56 Pregabalin (Lyrica) 50 mg PO ONETIME [facility] Stop: 02/11/19 12:00 Last Admin: 02/11/19 08:18 Dose: 50 mg Prochlorperazine Edisylate (Compazine) 5 mg IVPUSH Q8H PRN PRN Reason: Nausea/Vomiting Propofol (Diprivan 20 Ml) Confirm Administered Dose 600 mg .ROUTE .STK-MED ONE Stop: 02/11/19 08:00 Propofol (Diprivan 20 Ml) Confirm Administered Dose 200 mg .ROUTE .STK-MED ONE Stop: 02/11/19 10:12 Rivaroxaban (Xarelto) 10 mg PO DAILY [facility] Last Admin: 02/12/19 08:34 Dose: 10 mg Ropivacaine (Naropin 0.5%) Confirm Administered Dose 30 ml .ROUTE .STK-MED ONE Stop: 02/11/19 08:06 Rosuvastatin Calcium (Crestor) 20 mg PO DAILY [facility] Last Admin: 02/12/19 08:33 Dose: 20 mg Scopolamine (Transderm-Scop) 1.5 mg TRDERM Q72H PRN PRN Reason: Nausea Last Admin: 02/11/19 08:50 Dose: 1.5 mg Senna (Senna) 8.6 mg PO BID PRN PRN Reason: Constipation Sodium Chloride (Saline Flush) 10 ml FLUSH ASDIRECTED PRN PRN Reason: Keep Vein Open Stop: 02/11/19 18:00 Tranexamic Acid (Cyklokapron) Confirm Administered Dose 1,000 mg .ROUTE .STK- MED ONE Stop: 02/11/19 08:04 Last Admin: 02/11/19 10:40 Dose: 1,000 mg Vancomycin HCl (Vancomycin) Confirm Administered Dose 1 gm .ROUTE .STK-MED ONE Stop: 02/11/19 08:04 Last Admin: 02/11/19 10:37 Dose: 1 gm - Exam Wound/Incisions: Dressing Dry and Intact General: Alert, Cooperative, No Acute Distress Lungs: Normal Respiratory Effort Extremities: Other (NVS intact for BLE. Lawanda's negative.) Sepsis Event Note - Evaluation Sepsis Screening Result: No Definite Risk - Problem List Review Problem List Initiated/Reviewed/Updated: Yes - Assessment Assessment (Free Text/Narrative):: POD#1 - right TKA - Plan Plan (Free Text/Narrative):: 1. Hgb 11.7. 2. Xarelto 10mg PO daily (personal hx VTE), frequent mobility, TEDs. 3. Outpatient therapy. 4. Discharge to home today if cleared by therapy services and Hospitalist. The pt's case was discussed with Dr. Norris.
--- NOTE | 2019-02-14 13:24 | PCM.DCSUM1 ---
Discharge Summary - Hospital Course Brief History: Mamadou is a 68 yo male who underwent right TKA with Dr. Norris on 02-11-2019. The procedure was completed under spinal anesthesia with sedation. A post-op adductor canal block was provided.. The pt tolerated the procedure well and was admitted to the Medical-Surgical Unit. Medical management was provided by the Hospitalist service. The pt's Hospital course was uneventful. The pt's Hgb on POD#1 was 11.7. On POD#1, Xarelto 10mg PO daily was initiated for VTE prophylaxis. SCDs and TEDs were also ordered. A Mepilex dressing was placed at the incision site at the time of surgery and remained clean and dry. The pt participated in P.T. and O.T. and progressed well. The pt was allowed to WBAT and used a FWW for mobility. On POD#1, the pt was deemed appropriate to discharge to home with his . - Discharge Data Discharge Date: 02/12/19 Discharge Disposition: Home, Self-Care 01 Condition: Good - Referral to Home Health Primary Care Physician: PCP Not In Area - Patient Summary/Data Consults: Consultations 02/11/19 06:06 OT Evaluation and Treatment [CONS] Routine PT Evaluation and Treatment [CONS] Routine 02/11/19 06:07 Consult to Physician [CONS] Routine - Patient Instructions Diet: Usual Diet as Tolerated Activity: Apply Ice, As Tolerated, Elevate Extremity, Full Weight Bearing Driving: Do Not Drive Showering/Bathing: May Shower Wound/Incision Care: Keep Operative Site/Wound Site Clean and Dry, Do NOT Change Dressing Notify Provider of: Fever, Increased Pain, Swelling and Redness, Drainage, Nausea and/or Vomiting Other/Special Instructions: Please get up and moving around EVERY HOUR while awake. This helps to prevent blood clots. Please use your walker and have help with mobility as needed. Take a short walk in your home every hour while awake. Please take the Xarelto blood thinner medication daily as directed. At home, please complete the exercises that you learned during the Hospital stay. Schedule for physical therapy. Use the pain medication as needed. The medication may cause drowsiness and constipation. Contact your primary care provider for instructions if you are constipated. You may use a stool softener like docusate sodium or Colace 100mg twice daily and/or a laxative like Miralax daily for constipation. Increase your water and fiber intake while you are using the pain medication. Discontinue use of the pain medication as soon as able. Please do not use other medications that may cause drowsiness (other pain medications, anxiety pills, cold medications, sleeping pills, etc) while using the prescription pain medication. Do not use alcohol while using the pain medication. You may use acetaminophen or Tylenol for pain management, however, please ensure you are not using over 4000 mg or 4 grams of acetaminophen per day from all sources. Your pain medication has 325mg of acetaminophen per tablet. At this time, please do not use ibuprofen (Motrin, Advil) or naproxen (Aleve) for pain management as you are using the Xarelto. When the Xarelto course is completed in 4 to 6 weeks, you could use ibuprofen or naproxen for pain management (if this is allowed by your primary care provider). Wear the ROBBIE hose during the day and you may remove these at night. Elevate the limb to decrease swelling. Place ice to the area often. Place a towel between your skin and the blue pad. Use the incentive spirometer often. Take deep breaths throughout the day. Please keep the dressing in place until follow-up. Notify the Clinic if the dressing becomes saturated. Increase your protein intake while you are healing. If you have diabetes, please closely monitor your blood sugars and notify your primary care provider with abnormal values. Elevated blood sugars increases the risk of infection. Call the Clinic with questions or concerns - [phone]. Follow-up with your primary care provider within 3-5 days of discharge regarding your drop in kidney function. Recommend re-check BMP (Lab draw) at that time. Stay hydrated and drink plenty of fluids. Avoid coffee, pop, alcohol, etc. - Discharge Plan *PRESCRIPTION DRUG MONITORING PROGRAM REVIEWED*: No *COPY OF PRESCRIPTION DRUG MONITORING REPORT IN PATIENT ODIN: No Prescriptions/Med Rec: Acetaminophen/oxyCODONE [Percocet 325-5 MG] 1 - 2 tab PO Q4H PRN #60 tablet PRN Reason: Pain Cyclobenzaprine [Flexeril] 10 mg PO TID PRN #40 tablet PRN Reason: Spasms Rivaroxaban [Xarelto] 10 mg PO DAILY #40 tablet Home Medications: Home Meds Cholecalciferol (Vitamin D3) [Vitamin D3] 5,000 unit PO DAILY 12/13/19 [History] Esomeprazole Magnesium [Nexium] 40 mg PO BEDTIME 02/08/19 [History] Levothyroxine Sodium [Synthroid] 112 mcg PO DAILY 02/08/19 [History] amLODIPine Besylate [Norvasc] 2.5 mg PO BEDTIME 02/08/19 [History] atorvaSTATin Calcium [Atorvastatin Calcium] 80 mg PO BEDTIME 02/08/19 [History] lisinopriL [Lisinopril] 20 mg PO BEDTIME 02/08/19 [History] Acetaminophen/oxyCODONE [Percocet 325-5 MG] 1 - 2 tab PO Q4H PRN #60 tablet [Rx] Cyclobenzaprine [Flexeril] 10 mg PO TID PRN #40 tablet 02/12/19 [Rx] Docusate Sodium [Colace] 100 mg PO BID cap 02/12/19 [Rx] Magnesium Hydroxide [Milk of Magnesia] 30 ml PO BID PRN cup 02/12/19 [Rx] Remove Patch 1.5 ea TRDERM Q72H each 02/12/19 [Rx] Rivaroxaban [Xarelto] 10 mg PO DAILY #40 tablet 02/12/19 [Rx] Scopolamine [Transderm-Scop] 1.5 mg TRDERM Q72H PRN patch 02/12/19 [Rx] Sennosides [Senna] 8.6 mg PO BID PRN tablet 02/12/19 [Rx] bisacodyL [Dulcolax] 5 mg PO DAILY PRN tablet 02/12/19 [Rx] Patient Handouts: Rivaroxaban oral tablets, Total Knee Replacement, Easy-to- Read Referrals: Qi Rodriguez PA-C [Physician Special Education Kindergarten Teacher] - (Please follow-up with your primary care provider Lina Morris on Monday at 1015am in [place]) - Discharge Summary/Plan Comment DC Time >30 min.: No - Patient Data Vitals - Most Recent: Last Vital Signs Temp 99.1 F 02/12/19 11:37 Pulse 96 02/12/19 11:37 Resp 20 02/12/19 11:37 BP 127/87 02/12/19 11:37 Pulse Ox 94 L 02/12/19 11:37 Weight - Most Recent: 238 lb 9.6 oz Med Orders - Current: Current Medications Discontinued Medications Acetaminophen (Tylenol) 975 mg PO NOW [facility] Stop: 02/11/19 12:00 Last Admin: 02/11/19 08:18 Dose: 975 mg Hydrocodone Bitart/Acetaminophen ([place] 325-5 Mg) 1 - 2 tab PO Q4H PRN PRN Reason: Pain (moderate 4-6) Last Admin: 02/11/19 15:21 Dose: 2 tab Amlodipine Besylate (Norvasc) 2.5 mg PO DAILY [facility] Amlodipine Besylate (Norvasc) 2.5 mg PO BEDTIME [facility] Last Admin: 02/11/19 21:30 Dose: 2.5 mg Bisacodyl (Dulcolax) 5 mg PO DAILY PRN PRN Reason: Constipation Bupivacaine HCl (Sensorcaine-Mpf 0.25%) Confirm Administered Dose 30 ml .ROUTE .STK-MED ONE Stop: 02/11/19 08:04 Last Admin: 02/11/19 10:32 Dose: 30 ml Cefazolin Sodium (Ancef) Confirm Administered Dose 2 gm .ROUTE .STK-MED ONE Stop: 02/11/19 07:56 Last Admin: 02/11/19 10:29 Dose: 2 gm Cefazolin Sodium (Ancef) Confirm Administered Dose 2 gm .ROUTE .STK-MED ONE Stop: 02/11/19 08:04 Cholecalciferol (Vitamin D3) 5,000 unit PO DAILY [facility] Last Admin: 02/12/19 08:34 Dose: 5,000 unit Morphine Sulfate 8 mg/Epinephrine HCl 0.3 mg/Cefuroxime Sodium 750 mg/Ketorolac Tromethamine 30 mg/Sodium Chloride 27.9 ml 0 mg .XX ONETIME ONE Stop: 02/11/19 09:46 Last Admin: 02/11/19 15:06 Dose: Not Given Cyclobenzaprine HCl (Flexeril) 10 mg PO TID PRN PRN Reason: Spasms Docusate Sodium (Colace) 100 mg PO BID [facility] Last Admin: 02/12/19 08:32 Dose: 100 mg Ephedrine Sulfate (Ephedrine In Ns) Confirm Administered Dose 25 mg .ROUTE .STK- MED ONE Stop: 02/11/19 09:29 Famotidine (Pepcid) 20 mg PO Q12H [facility] Last Admin: 02/11/19 15:09 Dose: Not Given Fentanyl (Sublimaze) Confirm Administered Dose 100 mcg .ROUTE .STK-MED ONE Stop: 02/11/19 07:56 Fentanyl (Sublimaze) 50 mcg IVPUSH Q5M PRN PRN Reason: Pain Stop: 02/11/19 18:00 Hydromorphone HCl (Dilaudid) 0.5 mg IVPUSH Q10M PRN PRN Reason: Pain (severe 7-10) Stop: 02/11/19 18:00 Lactated Ringer's (Ringers, Lactated) 1,000 mls @ 125 mls/hr IV ASDIRECTED [facility] Stop: 02/11/19 23:00 Last Admin: 02/11/19 11:23 Dose: 125 mls/hr Cefazolin Sodium/Dextrose 2 gm (/ Premix) 50 mls @ 100 mls/hr IV Q8H [facility] Stop: 02/12/19 08:29 Last Admin: 02/12/19 08:21 Dose: 100 mls/hr Lactated Ringer's (Ringers, Lactated) Confirm Administered Dose 1,000 mls @ as directed .ROUTE .STK-MED ONE Stop: 02/11/19 09:36 Lactated Ringer's (Ringers, Lactated) Confirm Administered Dose 1,000 mls @ as directed .ROUTE .STK-MED ONE Stop: 02/11/19 12:11 Sodium Chloride (Normal Saline) 500 mls @ 999 mls/hr IV .BOLUS ONE Stop: 02/12/19 07:44 Last Admin: 02/12/19 08:15 Dose: 999 mls/hr Iodine (Iodine 2% Mild Tincture) Confirm Administered Dose 30 ml .ROUTE .STK- MED ONE Stop: 02/11/19 08:04 Last Admin: 02/11/19 10:28 Dose: 18 ml Ketorolac Tromethamine (Toradol) 15 mg IVPUSH Q6H PRN PRN Reason: Pain Ketorolac Tromethamine (Toradol) Confirm Administered Dose 30 mg .ROUTE .STK- MED ONE Stop: 02/11/19 10:31 Levothyroxine Sodium (Levothyroxine) 112 mcg PO ACBREAKFAST [facility] Last Admin: 02/12/19 05:30 Dose: 112 mcg Lidocaine/Sodium Bicarbonate (Buffered Lidocaine 1% In Ns 8.4%) 0.25 ml IDERM ONETIME PRN PRN Reason: Prior to IV Start Stop: 02/11/19 18:00 Magnesium Hydroxide (Milk Of Magnesia) 30 ml PO BID PRN PRN Reason: Constipation Midazolam HCl (Versed 1 Mg/Ml) Confirm Administered Dose 2 mg .ROUTE .STK-MED ONE Stop: 02/11/19 07:55 Miscellaneous Information (Remove Patch) 1.5 ea TRDERM Q72H [facility] Morphine Sulfate (Morphine) 2 mg IVPUSH Q2H PRN PRN Reason: Breakthrough Pain Naloxone HCl (Narcan) 0.1 mg IVPUSH Q5M PRN PRN Reason: Oversedation Ondansetron HCl (Zofran) 4 mg IVPUSH ONETIME PRN PRN Reason: Nausea/Vomiting Stop: 02/11/19 18:00 Ondansetron HCl (Zofran) Confirm Administered Dose 4 mg .ROUTE .STK-MED ONE Stop: 02/11/19 10:31 Ondansetron HCl (Zofran) 4 mg IVPUSH Q6H PRN PRN Reason: Nausea Oxycodone HCl (Oxycontin) 10 mg PO ONETIME [facility] Stop: 02/11/19 12:00 Last Admin: 02/11/19 08:18 Dose: 10 mg Oxycodone/Acetaminophen (Percocet 325-5 Mg) 1 - 2 tab PO Q4H PRN PRN Reason: Pain Last Admin: 02/11/19 20:06 Dose: 2 tab Oxycodone/Acetaminophen (Percocet 325-5 Mg) 1 - 2 tab PO Q4H PRN PRN Reason: Pain Last Admin: 02/12/19 12:57 Dose: 2 tab Pantoprazole Sodium (Protonix) 40 mg PO DAILY [facility] Last Admin: 02/12/19 08:34 Dose: 40 mg Phenylephrine HCl (Phenylephrine In Ns 100 Mcg/Ml) Confirm Administered Dose 1 mg .ROUTE .STK-MED ONE Stop: 02/11/19 09:56 Pregabalin (Lyrica) 50 mg PO ONETIME [facility] Stop: 02/11/19 12:00 Last Admin: 02/11/19 08:18 Dose: 50 mg Prochlorperazine Edisylate (Compazine) 5 mg IVPUSH Q8H PRN PRN Reason: Nausea/Vomiting Propofol (Diprivan 20 Ml) Confirm Administered Dose 600 mg .ROUTE .STK-MED ONE Stop: 02/11/19 08:00 Propofol (Diprivan 20 Ml) Confirm Administered Dose 200 mg .ROUTE .STK-MED ONE Stop: 02/11/19 10:12 Rivaroxaban (Xarelto) 10 mg PO DAILY [facility] Last Admin: 02/12/19 08:34 Dose: 10 mg Ropivacaine (Naropin 0.5%) Confirm Administered Dose 30 ml .ROUTE .STK-MED ONE Stop: 02/11/19 08:06 Rosuvastatin Calcium (Crestor) 20 mg PO DAILY [facility] Last Admin: 02/12/19 08:33 Dose: 20 mg Scopolamine (Transderm-Scop) 1.5 mg TRDERM Q72H PRN PRN Reason: Nausea Last Admin: 02/11/19 08:50 Dose: 1.5 mg Senna (Senna) 8.6 mg PO BID PRN PRN Reason: Constipation Sodium Chloride (Saline Flush) 10 ml FLUSH ASDIRECTED PRN PRN Reason: Keep Vein Open Stop: 02/11/19 18:00 Tranexamic Acid (Cyklokapron) Confirm Administered Dose 1,000 mg .ROUTE .STK- MED ONE Stop: 02/11/19 08:04 Last Admin: 02/11/19 10:40 Dose: 1,000 mg Vancomycin HCl (Vancomycin) Confirm Administered Dose 1 gm .ROUTE .STK-MED ONE Stop: 02/11/19 08:04 Last Admin: 02/11/19 10:37 Dose: 1 gm
--- NOTE | 2019-02-14 15:49 | PCM.OPNOTE ---
- General Post-Op/Procedure Note Date of Surgery/Procedure: 02/11/19 Operative Procedure(s): right total knee arthroplasty Pre Op Diagnosis: right knee osteoarthrosis Post-Op Diagnosis: Same Anesthesia Technique: Local, MAC, Spinal Primary Surgeon: Ulisses Norris Anesthesia Provider: Jose Martin Mendez Retail Cashier: Qi Rodriguez Retail Cashier: Kerrie Rojo in mLs: 5 Complications: None Condition: Good Free Text/Narrative:: 08/02 cemented 35x10 16mm TS
--- NOTE | 2019-02-14 16:17 | OR ---
DATE OF OPERATION: 02/11/2019 SURGEON: Ulisses Norris MD OPERATION PERFORMED: Right total knee arthroplasty. PREOPERATIVE DIAGNOSIS: Right knee osteoarthrosis. POSTOPERATIVE DIAGNOSIS: Right knee osteoarthrosis. ANESTHESIA: Local MAC with spinal. ANESTHESIA PROVIDER: Jose Martin Mendez HACK SAW OPERATOR: Qi Rodriguez PA-C , and Kerrie Rojo LPN. ESTIMATED BLOOD LOSS: 5 mL. COMPLICATIONS: None. CONDITION: Stable. IMPLANTS: 1. Willy size 6 cemented PS femur. 2. Willy size 6 cemented universal tibial base plate. 3. [place] size 16 mm PS polyethylene insert. 4. Willy size 6 35 x 10 mm asymmetric cemented patella. DESCRIPTION OF PROCEDURE: The patient was identified in the preop holding area. Proper site was marked and identified by the surgeon. The patient was taken back to the operating theater. After adequate anesthesia, the patient's right lower extremity had a nonsterile tourniquet applied and it was sterilely prepped and draped in the usual sterile fashion. OR time-out was performed. The patient received 2 g IV Ancef. At this time, the right lower extremity was exsanguinated. Tourniquet was insufflated to 250 mmHg. Standard medial parapatellar incision was made. Medial parapatellar arthrotomy was created. Deep fibers of the MCL were raised and anterior fat pad was resected. At this time, attention was turned to the patella. Patella measured 24, it was resected to a 14 for 35 x 10 mm patella. Drill holes were then drilled and found to be in adequate position. The drill was then drilled in the distal femur and the intramedullary distal femoral cutting guide was then placed. 10 mm was resected off the distal femur and was found to be an adequate resection. Sizing guide was placed. It was found to be a size 6 cemented PS femur that was shown on the implant record at the beginning of this dictation. The drill holes were drilled for the epicondylar axis using [place] line and epicondyles as reference. At this time, the 4-in-1 cutting block was placed. An anterior posterior and anterior and posterior chamfer cuts were then completed. Box cut was completed at this time. Attention was turned to the tibia. The posterior medial lateral retractors were placed. The extramedullary tibial guide was placed. It was placed in the old footprint of the ACL. It was aligned with the center of the ankle and 0 degrees of slope, 2 mm was then resected off the large lateral defect. There was found to be an acceptable reduction. At this time, posterior osteophytes were removed along with medial and lateral meniscus. A trial implant was placed with a correct sized tibia that was mentioned at the beginning of the dictation. A Willy size 16 mm PS polyethylene insert was then placed. The patient's knee was brought through range of motion. The patella was tracking centrally and was stable to varus and valgus stress. Alignment was found to be roughly at 0 degrees. The tibia was stamped and drilled in proper rotation. The universal tibial base plate was impacted in place. Next, the [place] size 6 cemented PS femur impacted into place and the Willy size 16 mm PS polyethylene insert was placed. The patient's knee was brought into full extension. The patella was then cemented in place at this time. One liter dilute Betadine solution was irrigated through the knee along with 3 L of pulse lavage irrigation with Ancef. Periarticular injection was then completed. The patient's knee was brought through a range of motion. Once the cement had time to set up and it was found to be stable to varus valgus stress, the patella was tracking centrally with full range of motion. At this time, a #2 barbed suture was used for closure of the medial parapatellar arthrotomy. Topical tranexamic acid was placed. 2-0 Vicryl was used subcutaneously, Prineo was used for the skin. The patient tolerated the procedure well and was sent to the PACU in stable condition. MEERA /[id number]
== END 2019-02-12 13:00 | disposition home or self-care (01) | DRG 302 ==
LOC: JD.SDS 07:50 → JD.OB 07:51 → JD.MS 14:22
PROVIDERS: ADMIT Orthopaedic Surgery; ATTEND Orthopaedic Surgery
PROC: 0SRC0J9 Replacement of Right Knee Joint with Synthetic Substitute, Cemented, Open Approach (ICD-10-PCS; principal; 2019-02-11)
DX: M17.11 Unilateral primary osteoarthritis, right knee (principal); N17.9 Acute kidney failure, unspecified; I71.2 Thoracic aortic aneurysm, without rupture; I10 Essential (primary) hypertension; E78.5 Hyperlipidemia, unspecified; K21.9 Gastro-esophageal reflux disease without esophagitis; E03.9 Hypothyroidism, unspecified; E55.9 Vitamin D deficiency, unspecified; E78.00 Pure hypercholesterolemia, unspecified; Z79.899 Other long term (current) drug therapy; Z79.890 Hormone replacement therapy; Z87.891 Personal history of nicotine dependence
CPT/HCPCS: 01402; 36415; 64450; 73560-26-RT; 73560-RT; 80053; 85027; 87641; 94761; 97110-GP; 97116-GP; 97161-GP; 97165-GO; 97530-GP; 97535-GO; 99222; 99232; A9270-GY; C1713; C1776; J0171; J0690; J0697; J1885; J2250; J2270; J2370; J2405; J2704; J2795; J3010; J3370; J3490; J7030; J7050; J7120